=== PATIENT | female | born 1990 | race Two or more races ===

== ENCOUNTER 2023-02-21 09:53 | Emergency (ER) | payer MEDICAID, OTHER ==
[~2023-02-21] VITALS: Ht 167.6 cm; Wt 100.0 kg
[2023-02-21] MEDS ORDERED: ONDANSETRON 4MG ODT PO ONE (10:30)
[2023-02-21] MEDS ORDERED: FAMOTIDINE 20MG TABLET PO ONE (10:30)
[2023-02-21] MEDS ORDERED: MAGNESIUM/ALUMINUM HYDROXIDE/SIMETHICONE 30ML UDC PO ONE (10:30)
[2023-02-21 12:00] VITALS: BP 129/72
== END 2023-02-21 12:30 | disposition home or self-care (01) ==
LOC: ER 09:53
DX: R10.13 Epigastric pain (principal)
CPT/HCPCS: 99284; Q0162